=== PATIENT | female | born 1985 | race Two or more races ===

== ENCOUNTER 2019-04-22 23:01 | Emergency (ER) | payer SELFPAY ==
[~2019-04-22] VITALS: Ht 167.6 cm; Wt 95.6 kg
[2019-04-22 23:36] LABS: MEAN CORPUSCULAR HEMOGLOBIN 30.3 pg (27.0-34.8); MEAN CORPUSCULAR HGB CONC 33.7 g/dL (32.4-35.8); MEAN CORPUSCULAR VOLUME 89.8 fL (80-100); MEAN PLATELET VOLUME 8.5 fL (7.4-10.4); PLATELET COUNT 203 x10^3/uL (130-400); RED BLOOD COUNT 4.78 x10^6/uL (3.82-5.3); RED CELL DISTRIBUTION WIDTH 13.3 % (9.6-15.2)
[2019-04-22 23:40] LABS: MD YES
[2019-04-22 23:48] LABS: ALBUMIN 3.9 g/dL (3.4-5.0); ANION GAP 4 mmol/L (5-15); CALCIUM 9.9 mg/dL (8.5-10.1); CHLORIDE 105 mmol/L (98-107); CREATININE 0.69 mg/dL (0.55-1.02)
[2019-04-22 23:55] LABS: <PLATELET ESTIMATE> ADEQUATE; ANISOCYTOSIS 1+; BASOS#(MANUAL) 0.05 x10^3/uL (0-0.1); BASOS% (MANUAL) 2 % (0-1); EOS#(MANUAL) 0.02 x10^3/uL (0.0-0.4); EOS% (MANUAL) 1 % (1-7); LYMPH#(MANUAL) 0.96 x10^3/uL (1-3.4); LYMPHS% (MANUAL) 40 % (22-44); MONOS#(MANUAL) 0.43 x10^3/uL (0.3-2.7); MONOS% (MANUAL) 18 % (2-9); REACTIVE LYMPHS # (MANUAL) 0.05 x10^3/uL (0-0); REACTIVE LYMPHS % (MANUAL) 2 % (0-0); SEG#(MANUAL) 0.89 x10^3/uL (1.8-6.8); SEGS% (MANUAL) 37 % (42-75)
[2019-04-22 23:56] LABS: <PLT MORPHOLOGY> NORMAL PLT MORPH; PMNS WITH VACUOLES 1+
[2019-04-23] MEDS ORDERED: KETOROLAC 30 MG/1 ML ONE (00:14)
[2019-04-23] MEDS ORDERED: METOCLOPRAMIDE 5 MG/ML, 2ML ONE (00:14)
[2019-04-23] MEDS ORDERED: DIPHENHYDRAMINE 50 MG/ML, 1ML ONE (00:14)
[2019-04-23] MEDS ORDERED: SODIUM CHLORIDE FLUSH 10ML SYR IVF ONE (00:30)
[2019-04-23] MEDS ORDERED: KETOROLAC 30 MG/1 ML IVPush ONE (00:30)
[2019-04-23] MEDS ORDERED: DIPHENHYDRAMINE 50 MG/ML, 1ML IVPush ONE (00:30)
[2019-04-23] MEDS ORDERED: METOCLOPRAMIDE 5 MG/ML, 2ML IVPush ONE (00:30)
[2019-04-23] MEDS ORDERED: SODIUM CHLORIDE 0.9% 1,000ML IVBOLUS ONE (00:30)
[2019-04-23] MEDS ORDERED: IBUP-1221 PO (01:09)
[2019-04-23] MEDS ORDERED: ACET650S21 PO (01:09)
--- NOTE | 2019-04-23 01:31 | NUR ---
PT IN [facility]OSPITAL GOWN. IV STARTED, FLUIDS INFUSING AND PT MEDICATED PER EMAR. PT ON VITALS MONITORS.
[2019-04-23 02:36] VITALS: BP 121/74
== END 2019-04-23 02:45 | disposition home or self-care (01) ==
LOC: ED 23:59
DX: G43.901 Migraine, unspecified, not intractable, with status migrainosus (principal); R42 Dizziness and giddiness
CPT/HCPCS: 36415; 71045; 80048; 82040; 84703; 85025; 93005; 96361; 96374; 96375; 99284; J1200; J1885; J2765; J7030